=== PATIENT | female | born 1945 | race African-American/Black ===

== ENCOUNTER 2021-11-17 09:42 | Emergency (ER) | payer MEDICARE, OTHER ==
[~2021-11-17] VITALS: Ht 167.6 cm; Wt 75.0 kg
[2021-11-17 10:16] VITALS: BP 131/91
--- NOTE | 2021-11-17 15:15 | PHYS DOC ---
Past Medical History Past Surgical History: No Surgical History (CELESTINO GALVEZ) Drug Use: None (CELESTINO GALVEZ) General Adult EDM: Chief Complaint: KNEE SWELLING HPI: HPI: Patient is a 76 year old female who presents with bilateral knee swelling. Patient's friend is at bedside and states that the patient has been increasingly confused. She lives on her own and reportedly is unable to care for herself anymore. She has also been using a cane to ambulate, which is not normal for the patient. Patient denies all complaints and states that she is "completely fine." (CELESTINO GALVEZ) Review of Systems: Review of Systems: Unable to obtain secondary to patient's mental status. (CELESTINO GALVEZ) Heart Score: C/O Chest Pain: No (CELESTINO GALVEZ) Allergies: Allergies: Allergies Coded Allergies Type Severity Reaction Last Updated Verified No Known Drug Allergies 11/17/21 No (CELESTINO GALVEZ) Physical Exam: PE: Constitutional: Well developed, well nourished, no acute distress, non-toxic yasmany earance. HENT: Normocephalic, atraumatic, bilateral external ears normal, nose normal. Eyes: PERRLA, EOMI, conjunctiva normal, no discharge. Neck: Normal range of motion, no stridor. Skin: Warm, dry, no erythema, no rash. Back: No step-off, no tenderness. Extremities: No tenderness, no cyanosis, no clubbing, ROM intact, no edema. Neurologic: Alert and oriented to person only (knows her name and address, believes the is 2017 cannot identify president, does not know what hospital she is located in, who she lives with or why she is here), no focal deficits noted. (CELESTINO GALVEZ) Current Patient Data: Vital Signs: Vital Signs Date Time Temp Pulse Resp B/P (MAP) Pulse Ox O2 Delivery O2 Flow Rate FiO2 11/17/21 10:16 97.9 86 16 131/91 (104) 98 Room Air 97.9 (CELESTINO GALVEZ) Course & Med Decision Making: Course & Med Decision Making Pertinent Labs and Imaging studies reviewed. (See chart for details) Patient is a 76-year-old female who presents with a family member who is concerned about the patient's mental status. She reports she is increasingly confused and less mobile than her baseline. Patient is a bit agitated on interview and exam, stating that she wants to go home and that she has no reason to be here. Patient's daughter is possibly the patient's power of project production engineer, so we will attempt to contact her. Patient eloped to the emergency department prior to conversing with her daughter, Julee. I spoke to Julee, who does not live locally. Julee confirms that she does have power of project production engineer. She states that the patient is more confused and is unable to take care of her home appropriately. Her family as well as the patient's friend are concerned and are hoping to have the patient evaluated for dementia and possible home health/assisted living. I advised the daughter that her primary care provider could aid in this process, but that it be much easier if she were present with the patient. (CELESTINO GALVEZ) Dragon Disclaimer: Lorna Disclaimer: This electronic medical record was generated, in whole or in part, using a voice recognition dictation system. (CELESTINO GALVEZ) Departure Departure Impression: Primary Impression: Eloped from emergency department Additional Impressions: Confusion with non-focal neuro exam History of confusion Disposition: 07 LEFT AWOL/ELOPED Condition: GUARDED Referrals: NO PCP (PCP) Attending Co-Sign The patient was seen and interviewed as well as examined at the bedside. The chart was reviewed. The case was discussed. Agree with the plan of care. (DELFINA ELI DO) CELESTINO GALVEZ Nov 17, 2021 15:15 DELFINA ELI DO Nov 17, 2021 15:27
== END 2021-11-17 11:06 | disposition left against medical advice (07) ==
LOC: ER 09:42
DX: R22.43 Localized swelling, mass and lump, lower limb, bilateral (principal); R41.0 Disorientation, unspecified
CPT/HCPCS: 99281